=== PATIENT | male | born 1985 | race Caucasian/White ===

== ENCOUNTER 2022-05-21 11:45 | Emergency (ER) | payer OTHER, SELFPAY ==
[2022-05-21 11:48] VITALS: BP 128/106; PULSE 81; RESP 16; TEMP 36.4; O2SAT 97; BMI 31.7
--- NOTE | 2022-05-21 12:28 | ED.GENADULT ---
HPI - General Adult General Chief complaint: Extremity Pain/Injury, Lower Stated complaint: Gout problem Time Seen by Provider: 05/21/22 11:46 Source: patient History of Present Illness HPI narrative: Patient is a 37-year-old male who says he has a history of a couple episodes of gout previously, most recently couple of months ago in his left MTP, now with symptoms of the right MTP for the past few days. It has been getting worse, he wanted to see his primary clinic but they did not have an appointment until Sunday, and he is leaving tomorrow to go up to [place] to work. He has not had any fevers or systemic complaints. He notes mild erythema and pain at the MTP joint. He has never been on anything chronically for gout management. He does not recall what he has used previously for flares. He said it should be in his records, although review of his records here shows no visits for gout in our system. No reported trauma. Pain is moderate at this time. Isolated to the MTP joint, does not radiate Related Data Home Medications Medication Instructions Recorded Confirmed No Known Home Medications 05/21/22 05/21/22 Allergies Allergy/AdvReac Type Severity Reaction Status Date / Time cefaclor [From Ceclor] Allergy Unknown Verified 05/21/22 11:51 Review of Systems Status of ROS: Reports: 10 or more systems reviewed and unremarkable except as noted in History and below [facility] Medical History Gout Social History Smoking Status: Never smoker Do you use any of these nicotine containing products: E-Cigarettes How often do you have a drink containing alcohol: 2-4 times a month AUDIT-C Alcohol total score: 2 Non-prescribed substance use: denies use Exam Narrative: Exam Narrative: Vital signs as noted above. In general, an alert, well-appearing patient. Head: Normocephalic, atraumatic. Eyes: Pupils are equal reactive. Extraocular movements are full. Conjunctivae are normal. ENT: Mucous membranes are moist. Neck: Supple without lymphadenopathy. Extremities: Well perfused. No edema. On the right foot, there is mild erythema at the MTP, some pain with passive range of motion. No significant swelling, no erythema elsewhere in the foot. Pulses intact. Neurologic: Patient is alert and oriented to person and place. Speech is fluent. Face is symmetric. Moves all extremities equally. Affect: Normal. Skin: Warm and dry. Well perfused. Const: Vital Signs, click to edit/add: Vital Signs - 24 hr 05/21/22 11:48 Temperature 97.6 F Pulse Rate [Pulse Oximeter] 81 Respiratory Rate 16 Blood Pressure [Ri ght Upper Arm] 128/106 H Pulse Oximetry 97 Oxygen Delivery Me thod Room Air Documenting provider has reviewed patient's vital signs: yes Course Course Hospital Course: Exam is consistent with mild gout. This does not look suggestive of significant cellulitis or other significant arthropathy. I think it is reasonable to treat him for an acute flare, but I did recommend that he follow up with primary care and discuss possible longer-term management given several flares at this point, 1 just a couple months ago. I am not sure what he has used previously, but I am going to give him a few days of prednisone, have asked him to use ibuprofen as a nonsteroidal. Return for worsening, otherwise primary care follow-up when he returns from [place]. Vital Signs Vital signs: Initial Vital Signs Temperature 97.6 F 05/21/22 11:48 Temperature Source Temporal Artery Scan 05/21/22 11:48 Pulse Rate 81 05/21/22 11:48 Respiratory Rate 16 05/21/22 11:48 Blood Pressure 128/106 H 05/21/22 11:48 Blood Pressure Mean 113 05/21/22 11:48 Blood Pressure Position Supine 05/21/22 11:48 Pulse Oximetry 97 05/21/22 11:48 Oxygen Delivery Method 05/21/22 11:48 Vital Signs Temperature 97.6 F 05/21/22 11:48 Pulse Rate 81 05/21/22 11:48 Respiratory Rate 16 05/21/22 11:48 Blood Pressure 128/106 H 05/21/22 11:48 Pulse Oximetry 97 05/21/22 11:48 Oxygen Delivery Method 05/21/22 11:48 Temperature 97.6 F 05/21/22 11:48 Pulse Rate 81 05/21/22 11:48 Respiratory Rate 16 05/21/22 11:48 Blood Pressure 128/106 H 05/21/22 11:48 Pulse Oximetry 97 05/21/22 11:48 Oxygen Delivery Method 05/21/22 11:48 Discharge Plan Discharge Clinical Impression: Gout Patient Disposition: Home, Self-Care Condition: Stable Instructions: Gout (ED) Additional Instructions: Prednisone as prescribed. Ibuprofen 400 mg 3 times daily. Recommend primary care follow-up when you are back in town to discuss longer-term management for gout. Prescriptions: No Action No Known Home Medications Follow Up/Referrals: Brady Davis MD [Primary Care Provider] - Stand Alone Forms: [employer] Info Instructions
== END 2022-05-21 12:24 | disposition home or self-care (01) ==
LOC: ED 12:22
PROVIDERS: Emergency Provider Emergency Medicine; PCP Family Medicine
DX: M10.9 Gout, unspecified (principal)
CPT/HCPCS: 99282; 99283